=== PATIENT | female | born 2000 | race Caucasian/White ===

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

== ENCOUNTER 2022-10-02 20:48 | Emergency (ER) | payer OTHER ==
[2022-10-02 20:55] VITALS: BP 124/83; PULSE 65; RESP 18; TEMP 98.9; BMI 33.0
[2022-10-02] MEDS ORDERED: ACETAMINOPHEN 500 MG TABLET (FP) PO ONE (22:56)
[2022-10-02] MEDS ORDERED: IBUPROFEN 600 MG TABLET (FP) PO ONE ×2 (22:56→22:57)
[2022-10-02] MEDS ORDERED: ACETAMINOPHEN 500 MG TABLET (FP) ONE (22:57)
== END 2022-10-02 23:25 | disposition home or self-care (01) ==
LOC: JERFT 20:48 → JER 20:48 → JERFT 23:25
DX: M79.642 Pain in left hand (principal)
CPT/HCPCS: 73130-TC-LT-FY; 99283-25

== ENCOUNTER 2022-12-06 08:17 | Emergency (ER) | payer OTHER ==
[2022-12-06 08:25] VITALS: BP 123/75; PULSE 86; RESP 16; TEMP 98.2; BMI 34.1
[2022-12-06 08:56] LABS: HCG,QUALITATIVE URINE Negative
[2022-12-06 08:57] LABS: EPI CELLS >36 /uL (0-25.1); HYALINE CASTS 3 /uL (0-3.1); URINE APPEARANCE TURBID; URINE BACTERIA 151 /uL (0-1359); URINE BILIRUBIN NEGATIVE (NEGATIVE); URINE COLOR YELLOW; URINE GLUCOSE (UA) NEGATIVE (NEGATIVE); URINE KETONE NEGATIVE (NEGATIVE); URINE LEUK ESTERASE 3+ (NEGATIVE); URINE NITRITE NEGATIVE (NEGATIVE); URINE PROTEIN 2+ (NEGATIVE); URINE RBC 7812 /uL (0-23.9); URINE UROBILINOGEN 0.2 mg/dL (0.2-1.0); URINE WBC 15711 /uL (0-25.8)
[2022-12-06 09:19] LABS: BASO % 0.8 % (0-2.0); EOS % 3.4 % (0-4.5); HEMATOCRIT 38.1 % (32.4-45.2); LYMPH % 21.3 % (8-40); MCH 28.4 pg (25.7-33.7); MEAN CELL VOLUME 83.4 fl (80-96); NEUT % 68.5 % (42.8-82.8); PLATELET COUNT 329 10^3/uL (134-434); RBC 4.57 M/mm3 (3.60-5.2); RDW 14.6 % (11.6-15.6)
[2022-12-06 09:43] LABS: CALCIUM 9.3 mg/dL (8.5-10.1)
[2022-12-06 09:44] LABS: BLOOD UREA NITROGEN 10.8 mg/dL (7-18)
[2022-12-06 09:47] LABS: CREATININE 0.7 mg/dL (0.55-1.3)
== END 2022-12-06 10:29 | disposition home or self-care (01) ==
LOC: JER 08:17
DX: N39.0 Urinary tract infection, site not specified (principal); N93.8 Other specified abnormal uterine and vaginal bleeding; R10.30 Lower abdominal pain, unspecified
CPT/HCPCS: 36415; 80048; 81003; 84703; 85025; 87086; 87186; 87491; 87591; 99283-25

== ENCOUNTER 2023-07-05 01:36 | Emergency (ER) | payer OTHER ==
[2023-07-05 01:53] VITALS: BP 103/60; PULSE 106; RESP 18; TEMP 97.3; BMI 34.3
[2023-07-05] MEDS ORDERED: ACETAMINOPHEN 500 MG TABLET (FP) PO ONE (02:03)
[2023-07-05] MEDS ORDERED: ACETAMINOPHEN 500 MG TABLET (FP) ONE (02:07)
== END 2023-07-05 03:42 | disposition home or self-care (01) ==
LOC: JER 01:36
PROC: 2W3CX1Z Immobilization of Right Lower Arm using Splint (ICD-10-PCS; principal; 2023-07-05)
DX: S52.611A Displaced fracture of right ulna styloid process, initial encounter for closed fracture (principal); M25.531 Pain in right wrist; W18.39XA Other fall on same level, initial encounter
CPT/HCPCS: 73110-TC-RT-FY; 73130-TC-RT-FY; 99283-25

== ENCOUNTER 2023-07-21 09:05 | Emergency (ER) | payer OTHER ==
[2023-07-21 09:26] VITALS: BP 112/72; PULSE 87; RESP 17; TEMP 98.4; BMI 34.1
[2023-07-21] MEDS ORDERED: diphenhydrAMINE HCL 25 MG CAPSULE (FP) PO ONE ×2 (10:00→10:06)
== END 2023-07-21 11:12 | disposition home or self-care (01) ==
LOC: JER 09:05 → JERFT 09:05
DX: R21 Rash and other nonspecific skin eruption (principal); R50.9 Fever, unspecified; J02.9 Acute pharyngitis, unspecified; R20.2 Paresthesia of skin; L29.9 Pruritus, unspecified; B08.4 Enteroviral vesicular stomatitis with exanthem; B34.9 Viral infection, unspecified
CPT/HCPCS: 87070; 87651; 99283-25